=== PATIENT | male | born 1970 | race Caucasian/White ===

== ENCOUNTER 2019-02-08 08:46 | Inpatient (IN) | payer MEDICAID, MEDICARE ==
[~2019-02-08] VITALS: Ht 162.6 cm; Wt 66.7 kg
[2019-02-08] MEDS ORDERED: LITH300T3 PO (09:00)
[2019-02-08] MEDS ORDERED: LISI5TAB7 PO (09:01)
[2019-02-08] MEDS ORDERED: LITH450T PO (09:01)
[2019-02-08] MEDS ORDERED: [UNRECOGNIZED DRUG - CODE] PO (09:02)
[2019-02-08] MEDS ORDERED: Abilify (09:08)
--- NOTE | 2019-02-08 09:16 | NUR ---
BREAK RN: CONTACT WITH PT, 48 YR OLD MALE HERE WITH C/O "I JUST FEEL SO WEAK AND MUSCLE ACHES, STOMACH PAINS AND NAUSEA, SOMETIMES I GET DIZZY, I THINK BECAUSE OF THE HEAT. I CANNOT CONTINUE WORKING. MY JOB THEY LET ME GO HOME." HAS BEEN GOING ON SINCE THE December. PT PLACED ON AUTO BP AND PULSE OX MONITORS.
--- NOTE | 2019-02-08 09:27 | NUR ---
REPORT TO HARRIET MA.
[2019-02-08 10:05] LABS: BASOPHILS # (AUTO) 0.04 x10^3/uL (0-0.1); BASOPHILS % (AUTO) 0 % (0-1); EOSINOPHILS # (AUTO) 0.28 x10^3/uL (0-0.4); EOSINOPHILS % (AUTO) 3 % (1-7); LYMPHOCYTES # (AUTO) 0.91 x10^3/uL (1-3.4); LYMPHOCYTES % (AUTO) 9 % (22-44); MD NO; MEAN CORPUSCULAR HGB CONC 33.9 g/dL (33.2-36.2); MEAN CORPUSCULAR VOLUME 85.6 fL (81-97); MEAN PLATELET VOLUME 6.6 fL (7.4-10.4); MONOCYTES # (AUTO) 0.62 x10^3/uL (0.2-0.8); MONOCYTES % (AUTO) 6 % (2-9); NEUTROPHILS # (AUTO) 8.57 x10^3/uL (1.8-6.8); NEUTROPHILS % (AUTO) 82 % (42-75); PLATELET COUNT 268 x10^3/uL (130-400); RED BLOOD COUNT 5.46 x10^6/uL (4.38-5.82); RED CELL DISTRIBUTION WIDTH 12.2 % (9.4-14.8)
[2019-02-08 10:13] LABS: ALANINE AMINOTRANSFERASE 52 U/L (12-78); ALBUMIN 3.7 g/dL (3.4-5.0); ANION GAP 7 mmol/L (5-15); CALCIUM 9.3 mg/dL (8.5-10.1); CHLORIDE 106 mmol/L (98-107); CREATININE 0.86 mg/dL (0.7-1.3)
[2019-02-08 10:16] LABS: ALKALINE PHOSPHATASE 143 U/L (45-117); BILIRUBIN,TOTAL 0.8 mg/dL (0.2-1.0); TOTAL PROTEIN 7.4 g/dL (6.4-8.2)
--- NOTE | 2019-02-08 10:27 | NUR ---
US at bedside.
--- NOTE | 2019-02-08 10:48 | NUR ---
PT RESTING ON GURDELROY. US AT BEDSIDE COMPLETE. ALL CONCERNS ADRESSED.
--- NOTE | 2019-02-08 10:51 | NUR ---
PT AMBULATORY TO BATHROOM WITH STEADY GAIT.
[2019-02-08 11:40] LABS: MICROSCOPIC NOT IND
[2019-02-08 11:43] LABS: CULTURE INDICATED? NO
[2019-02-08] MEDS ORDERED: OMNIPAQUE 350 MG/ML, 100ML BOTTLE ONE (11:59)
--- NOTE | 2019-02-08 12:10 | NUR ---
TASK RN: PT IN ROOM RESTING IN BED. REPORTS PAIN IMPROVEMENT WITH NON PHRMACOLOGICAL INTERVENTIONS OF REPOSITIONING. PT HAS NO NEEDS AT THIS TIME.
--- NOTE | 2019-02-08 13:51 | NUR ---
PT REWSTING COMFORTABLY. DENIES PAIN AT THIS TIME. ALL CONCERNS ADRESSED. PT TO BE ADMIT TO MED/ONC.
[2019-02-08] MEDS ORDERED: IBUPROFEN 600 MG TABLET PO PRN (14:00)
[2019-02-08] MEDS ORDERED: BISACODYL 10 MG SUPP PR PRN (14:00)
[2019-02-08] MEDS ORDERED: ONDANSETRON ODT 4 MG PO PRN (14:00)
[2019-02-08] MEDS ORDERED: ONDANSETRON 2MG/ML, 2ML IVPush PRN (14:00)
[2019-02-08 14:15] LABS: BILIRUBIN, DIRECT 0.4 mg/dL (0.1-0.2); BILIRUBIN,INDIRECT 0.4 mg/dL (0.0-2.0); BILIRUBIN,TOTAL 0.8 mg/dL (0.2-1.0)
[2019-02-08 15:24] LABS: INTERNATIONAL NORMALIZED RATIO 1.02 (0.93-1.1); PROTHROMBIN TIME 10.7 Seconds (9.6-11.5)
--- NOTE | 2019-02-08 16:04 | NUR ---
PT PROVIDED WITH MEAL TRAY.
--- NOTE | 2019-02-08 16:04 | NUR ---
REPORT TO YOLANDA MA.
[2019-02-08 17:01] VITALS: BP 130/76
[2019-02-08 19:15] VITALS: BP 130/84
[2019-02-09] MEDS ORDERED: LITHIUM CARBONATE 150 MG CAPSULE ONE (00:01)
[2019-02-09] MEDS: SODIUM CHLORIDE 0.9% 1,000 ML IV SCH ×3 (00:07→20:53)
[2019-02-09 02:42] VITALS: BP 121/80
[2019-02-09] MEDS ORDERED: LORazepam 2 MG/ML, 1ML ONE (03:05)
[2019-02-09] MEDS ORDERED: MORPHINE SULFATE 4 MG/ML, 1ML IVPush PRN (03:30)
[2019-02-09] MEDS ORDERED: LORazepam 2 MG/ML, 1ML IVPush ONE (03:30)
[2019-02-09 05:02] LABS: ALANINE AMINOTRANSFERASE 48 U/L (12-78); ALBUMIN 3.8 g/dL (3.4-5.0); ANION GAP 5 mmol/L (5-15); BASOPHILS # (AUTO) 0.03 x10^3/uL (0-0.1); BASOPHILS % (AUTO) 0 % (0-1); CALCIUM 8.9 mg/dL (8.5-10.1); CHLORIDE 110 mmol/L (98-107); CREATININE 0.92 mg/dL (0.7-1.3); EOSINOPHILS # (AUTO) 0.27 x10^3/uL (0-0.4); EOSINOPHILS % (AUTO) 3 % (1-7); LYMPHOCYTES # (AUTO) 1.22 x10^3/uL (1-3.4); LYMPHOCYTES % (AUTO) 12 % (22-44); MD NO; MEAN CORPUSCULAR HEMOGLOBIN 28.7 pg (27.5-34.5); MEAN CORPUSCULAR HGB CONC 33.7 g/dL (33.2-36.2); MEAN CORPUSCULAR VOLUME 85.1 fL (81-97); MEAN PLATELET VOLUME 6.9 fL (7.4-10.4); MONOCYTES # (AUTO) 0.66 x10^3/uL (0.2-0.8); MONOCYTES % (AUTO) 7 % (2-9); NEUTROPHILS # (AUTO) 7.72 x10^3/uL (1.8-6.8); NEUTROPHILS % (AUTO) 78 % (42-75); PLATELET COUNT 251 x10^3/uL (130-400); RED BLOOD COUNT 5.27 x10^6/uL (4.38-5.82); RED CELL DISTRIBUTION WIDTH 12.4 % (9.4-14.8)
[2019-02-09 05:04] LABS: ALKALINE PHOSPHATASE 139 U/L (45-117); BILIRUBIN,TOTAL 0.5 mg/dL (0.2-1.0); TOTAL PROTEIN 6.9 g/dL (6.4-8.2)
[2019-02-09 07:07] VITALS: BP 116/77
[2019-02-09] MEDS ORDERED: FENTANYL PF 100 MCG/2ML ONE (07:54)
[2019-02-09] MEDS ORDERED: FLUMAZENIL 0.1 MG/1 ML, 5ML ONE (07:54)
[2019-02-09] MEDS ORDERED: MIDAZOLAM 1 MG/ML, 5ML ONE (07:54)
[2019-02-09] MEDS ORDERED: NALOXONE 1 MG/ML, 2ML ONE (07:55)
[2019-02-09] MEDS ORDERED: [UNRECOGNIZED DRUG - OTHER] PO SCH (09:00)
[2019-02-09] MEDS ORDERED: GLUCOSAMINE SULFATE 1000 MG PO SCH (09:00)
[2019-02-09] MEDS: LITHIUM CARBONATE 300 MG TABLET.ER PO SCH (13:02)
[2019-02-09] MEDS: LISINOPRIL 5 MG TABLET PO SCH (13:02)
[2019-02-09 13:28] VITALS: BP 114/78
[2019-02-09 18:39] VITALS: BP 114/79
[2019-02-09] MEDS ORDERED: ASPIRIN 325 MG TABLET EC PO ONE (19:00)
[2019-02-09 19:53] LABS: TROPONIN I < 0.015 ng/mL (0.000-0.045)
[2019-02-09] MEDS: LITHIUM CARBONATE 150 MG CAPSULE PO SCH ×2 (20:51)
[2019-02-09] MEDS ORDERED: LORazepam 1MG TABLET PO PRN (22:00)
[2019-02-09 22:36] LABS: TROPONIN I < 0.015 ng/mL (0.000-0.045)
[2019-02-09] MEDS: CARVEDILOL 3.125 MG TABLET PO SCH (23:00)
[2019-02-09] MEDS ORDERED: ATORVASTATIN 80 MG TABLET PO SCH (23:00)
[2019-02-09] MEDS: DOCUSATE 100 MG CAPSULE PO PRN (23:41)
[2019-02-10] MEDS ORDERED: HYDROcodone/APAP 5/325 TABLET PO ONE (00:30)
[2019-02-10 01:22] VITALS: BP 128/86
[2019-02-10] MEDS: CARVEDILOL 3.125 MG TABLET PO SCH (05:46)
[2019-02-10] MEDS: SODIUM CHLORIDE 0.9% 1,000 ML IV SCH ×2 (05:47→15:26)
[2019-02-10 08:03] VITALS: BP 101/69
[2019-02-10] MEDS: LISINOPRIL 5 MG TABLET PO SCH (08:54)
[2019-02-10] MEDS: LITHIUM CARBONATE 300 MG TABLET.ER PO SCH (08:54)
[2019-02-10] MEDS ORDERED: ACETAMINOPHEN 325 MG TABLET ONE (11:51)
[2019-02-10] MEDS ORDERED: ACETAMINOPHEN 325 MG TABLET PO PRN (12:00)
[2019-02-10 13:08] VITALS: BP 113/76
[2019-02-10] MEDS: DOCUSATE 100 MG CAPSULE PO PRN (14:27)
[2019-02-10] MEDS ORDERED: CARV3.1212 PO (15:19)
[2019-02-10] MEDS ORDERED: ATOR-2 PO (15:19)
[2019-02-10] MEDS ORDERED: HYDR-3240 PO (15:19)
== END 2019-02-10 17:45 | disposition home or self-care (01) | DRG 436 ==
LOC: ED 11:23 → INTOOBSV 13:49 → EDIP 13:49 → OBSVTOIN 15:26 → 3NW 16:58
PROVIDERS: ADMIT Family Medicine; ATTEND Family Medicine
PROC: 0FB03ZX Excision of Liver, Percutaneous Approach, Diagnostic (ICD-10-PCS; principal; 2019-02-09)
PROC: 0FJ Hepatobiliary System and Pancreas, Inspection (ICD-10-PCS; 2019-02-09)
DX: C78.7 Secondary malignant neoplasm of liver and intrahepatic bile duct (principal); C25.9 Malignant neoplasm of pancreas, unspecified; F31.9 Bipolar disorder, unspecified; F20.9 Schizophrenia, unspecified; M10.9 Gout, unspecified; F41.1 Generalized anxiety disorder; I10 Essential (primary) hypertension; K80.20 Calculus of gallbladder without cholecystitis without obstruction; Z79.899 Other long term (current) drug therapy; Z80.9 Family history of malignant neoplasm, unspecified
CPT/HCPCS: 36415; 47000; 71250; 74177; 76700; 76937; 77012; 80053; 80178; 81003; 82105; 82247; 82248; 83690; 84484; 85025; 85610; 85730; 86301; 88307; 88341; 88342; 93005; 96374; 96375; 99156; 99157; 99285; G0378; J2250; J3010; Q9967; J2060; J2270; J2310; J7030

== ENCOUNTER 2019-03-25 06:23 | Emergency (ER) | payer MEDICARE ==
[~2019-03-25] VITALS: Ht 162.6 cm; Wt 65.6 kg
[~2019-03-25 06:23] MED LIST: ATOR-2 PO; Abilify; CARV3.1212 PO; HYDR-3240 PO; LISI5TAB7 PO; LITH300T3 PO; LITH450T PO; [UNRECOGNIZED DRUG - CODE] PO
--- NOTE | 2019-03-25 06:52 | NUR ---
REPORT GIVEN TO JENN MA.
[2019-03-25] MEDS ORDERED: ONDANSETRON 2MG/ML, 2ML ONE (06:53)
[2019-03-25] MEDS ORDERED: HYDROmorphone 2 MG/ML, 1ML ONE (06:54)
[2019-03-25 06:57] LABS: BASOPHILS # (AUTO) 0.02 x10^3/uL (0-0.1); BASOPHILS % (AUTO) 0 % (0-1); EOSINOPHILS # (AUTO) 0.14 x10^3/uL (0-0.4); EOSINOPHILS % (AUTO) 1 % (1-7); LYMPHOCYTES # (AUTO) 0.33 x10^3/uL (1-3.4); LYMPHOCYTES % (AUTO) 3 % (22-44); MD NO; MEAN CORPUSCULAR HEMOGLOBIN 27.5 pg (27.5-34.5); MEAN CORPUSCULAR HGB CONC 31.7 g/dL (33.2-36.2); MEAN CORPUSCULAR VOLUME 86.8 fL (81-97); MEAN PLATELET VOLUME 6.5 fL (7.4-10.4); MONOCYTES # (AUTO) 0.41 x10^3/uL (0.2-0.8); MONOCYTES % (AUTO) 4 % (2-9); NEUTROPHILS # (AUTO) 9.37 x10^3/uL (1.8-6.8); NEUTROPHILS % (AUTO) 91 % (42-75); PLATELET COUNT 142 x10^3/uL (130-400); RED BLOOD COUNT 4.43 x10^6/uL (4.38-5.82); RED CELL DISTRIBUTION WIDTH 13.8 % (9.4-14.8)
[2019-03-25] MEDS ORDERED: ONDANSETRON 2MG/ML, 2ML IVPush ONE (07:00)
[2019-03-25] MEDS ORDERED: SODIUM CHLORIDE 0.9% 1,000ML IVBOLUS ONE (07:00)
[2019-03-25] MEDS ORDERED: SODIUM CHLORIDE FLUSH 10ML SYR IVF ONE (07:00)
[2019-03-25 07:08] LABS: INTERNATIONAL NORMALIZED RATIO 1.22 (0.93-1.1); PROTHROMBIN TIME 12.7 Seconds (9.6-11.5)
[2019-03-25 07:09] LABS: ALANINE AMINOTRANSFERASE 77 U/L (12-78); ALBUMIN 2.9 g/dL (3.4-5.0); ANION GAP 7 mmol/L (5-15); CALCIUM 9.2 mg/dL (8.5-10.1); CHLORIDE 100 mmol/L (98-107); CREATININE 0.73 mg/dL (0.7-1.3)
[2019-03-25 07:12] LABS: ALKALINE PHOSPHATASE 620 U/L (45-117); BILIRUBIN,TOTAL 3.5 mg/dL (0.2-1.0); TOTAL PROTEIN 7.2 g/dL (6.4-8.2)
[2019-03-25] MEDS: HYDROmorphone 2 MG/ML, 1ML IVPush PRN ×2 (07:27→08:21)
[2019-03-25] MEDS ORDERED: OMNIPAQUE 350 MG/ML, 100ML BOTTLE ONE (07:52)
[2019-03-25 08:19] VITALS: BP_DIAS 71
--- NOTE | 2019-03-25 08:23 | NUR ---
PT STATES PAIN IMPROVED "BUT NOW IT HURTS AGAIN" PT MED NOTED FOR PAIN 02/01. CT RESULTS PENDING, CALL LIGHT W/I REACH
[2019-03-25] MEDS ORDERED: FAMOTIDINE 20 MG/2 ML ONE (08:46)
[2019-03-25] MEDS ORDERED: methylPREDNISolone SOD SUCC 125 MG/2 ML ONE (08:46)
[2019-03-25 10:15] VITALS: BP_SYST 109
--- NOTE | 2019-03-25 10:17 | NUR ---
Patient/Caregiver given discharge instructions and they have confirmed that they understand the instructions. Patient ambulatory with steady gait.
== END 2019-03-25 10:18 | disposition home or self-care (01) ==
LOC: ED 07:31
DX: G89.29 Other chronic pain (principal); R10.9 Unspecified abdominal pain; E11.65 Type 2 diabetes mellitus with hyperglycemia
CPT/HCPCS: 36415; 74177; 80053; 83690; 85025; 85610; 96361; 96374; 96375; 96376; 99284; J1170; J2405; J7030; Q9967